=== PATIENT | female | born 1990 | race Caucasian/White ===

== ENCOUNTER 2021-09-09 22:37 | Emergency (ER) | payer OTHER ==
[2021-09-09 22:43] VITALS: BP 113/73
[2021-09-09] MEDS ORDERED: METOCLOPRAMIDE 10 MG/2 ML VIAL IVP STA (22:55)
[2021-09-09] MEDS ORDERED: diphenhydrAMINE INJ 50 MG/ML VIAL IVP STA (22:55)
[2021-09-09] MEDS ORDERED: SODIUM CHLORIDE 0.9% 1,000 ML IV STA (22:55)
[2021-09-09] MEDS ORDERED: ACETAMINOPHEN 325 MG TABLET PO STA (22:55)
[2021-09-09] MEDS ORDERED: KETOROLAC 15 MG/ML VIAL IVP STA (22:55)
[2021-09-09 23:01] LABS: BILIRUBIN,URINE NEGATIVE (NEGATIVE); GLUCOSE, URINE (UA) NEGATIVE (NEGATIVE); KETONES,URINE (UA) NEGATIVE (NEGATIVE); LEUKOCYTE ESTERASE, URINE SMALL (NEGATIVE); NITRITE,URINE NEGATIVE (NEGATIVE); OCCULT BLOOD,URINE NEGATIVE (NEGATIVE); PROTEIN,URINE NEGATIVE (NEGATIVE); UROBILINOGEN,URINE 0.2 (NORMAL) E.U./dL (NORMAL)
[2021-09-09 23:04] LABS: CLARITY,URINE CLEAR (CLEAR)
[2021-09-09 23:06] LABS: BACTERIA,URINE Few /HPF (None Seen); RBC,URINE 0-5 /HPF (0-5); SQUAMOUS EPITHELIAL CELL,UR FEW Squamous (<= Few)
[2021-09-09] MEDS ORDERED: ONDANSETRON ODT 4 MG Prepack 2 TL PRN (23:06)
--- NOTE | 2021-09-09 23:07 | ED Physician Documentation ---
History of Present Illness - Stated complaint Stated Complaint: NAUSEA/HEADACHE - Chief complaint Chief Complaint: Abd Pain - History obtained from History obtained from: Patient - Additonal information Additional information: 31yF, previously healthy, currently 9 weeks , p/w nausea and nbnb vomiting in the mornings and evenings over the past few weeks. also with L sided frontal nonradiating mild aching headache, worse with vomiting. denies fever, neck pain, dizziness, abd pain, vaginal bleeding, urinary sx, back pain. Review of Systems Ten Systems: 10 systems reviewed and negative Constitutional: denies: Fever, Chills Cardiac: denies: Chest pain / pressure Respiratory: denies: Dyspnea GI: reports: Nausea, Vomiting. denies: Diarrhea : denies: Dysuria, Frequency, Hematuria, Vaginal bleeding PD PAST MEDICAL HISTORY - Present Medications Home Medications: Ambulatory Orders Medication Instructions Recorded Confirmed Ondansetron Odt [Zofran Odt] 4 mg PO Q6HR PRN 09/09/21 09/09/21 Ondansetron Odt [Zofran Odt] 4 mg TL Q6H PRN #10 tablet 09/09/21 - Allergies Allergies/Adverse Reactions: Allergies Allergy/AdvReac Type Severity Reaction Status Date / Time No Known Drug Allergies Allergy Verified 09/09/21 22:40 PD ED PE NORMAL - Vitals Vital signs reviewed: Yes - General General: Alert and oriented X 3, No acute distress, Well developed/nourished - HEENT HEENT: Atraumatic, PERRL, EOMI - Neck Neck: Supple, no meningeal sign - Cardiac Cardiac: RRR - Respiratory Respiratory: No respiratory distress, Clear bilaterally - Abdomen Abdomen: Non tender, Non distended - Derm Derm: Normal color, Warm and dry - Extremities Extremities: No deformity - Neuro Neuro: Alert and oriented X 3, No motor deficit, No sensory deficit - Psych Psych: Normal mood, Normal affect Results - Vitals Vitals: Vital Signs - 24 hr 09/09/21 22:40 Temperature 36.5 C Heart Rate 60 Respiratory 16 Rate Blood Pressure 113/73 O2 Saturation 100 Oxygen O2 Source Room air - Labs Labs: Laboratory Tests 09/09/21 22:45 Urine Color YELLOW Urine Clarity CLEAR Urine pH 8.0 H Ur Specific [place] 1.010 Urine Protein NEGATIVE Urine Glucose (UA) NEGATIVE Urine Ketones NEGATIVE Urine Occult Blood NEGATIVE Urine Nitrite NEGATIVE Urine Bilirubin NEGATIVE Urine Urobilinogen 0.2 (NORMAL) Ur Leukocyte Esterase SMALL H Urine RBC 0-5 Urine WBC 4-5 Ur Squamous Epith Cells FEW Squamous Urine Bacteria Few Ur Microscopic Review INDICATED Urine Culture Comments INDICATED PD MEDICAL DECISION MAKING - ED course ED course: 31yF presents requesting zofran prepack. declining other meds or labwork. also refused ultrasound to check FHR. return precautions discussed. plan to f/u outpatient with obiee lead developer. Departure - Departure Disposition: Home, Self Care Clinical Impression: Vomiting, Headache Condition: Good Instructions: Ondansetron oral dissolving tablet Prescriptions: Ondansetron Odt [Zofran Odt] 4 mg TL Q6H PRN #10 tablet PRN Reason: Nausea / Vomiting Comments: You were seen in the ED for nausea and headache. Please follow up with your primary doctor and obiee lead developer. return to the ED if you have new or worsening symptoms or other concerns.
== END 2021-09-09 23:20 | disposition home or self-care (01) ==
LOC: ED 22:37
DX: O21.9 Vomiting of pregnancy, unspecified (principal); O99.891 Other specified diseases and conditions complicating pregnancy; R51.9 Headache, unspecified; Z3A.09 9 weeks gestation of pregnancy
CPT/HCPCS: 80053; 81001; 81003; 83690; 85025; 87086; 99282; 99283